=== PATIENT | male | born 1950 | race Two or more races ===

== ENCOUNTER 2017-03-24 09:29 | Emergency (ER) | payer MEDICARE, OTHER ==
[~2017-03-24] VITALS: Ht 180.3 cm; Wt 55.3 kg
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
--- NOTE | 2017-03-24 09:35 | NUR ---
Patient denies headache, neck or back. patient able to move all extremities. neuro intact.
[2017-03-24] MEDS ORDERED: IBUPROFEN 400 MG TABLET PO ONE (10:00)
[2017-03-24] MEDS ORDERED: IBUPROFEN 400 MG TABLET ONE (10:27)
--- NOTE | 2017-03-24 10:30 | NUR ---
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
--- NOTE | 2017-03-24 10:50 | NUR ---
Patient discharged to home in stable condition. Written and verbal after care instructions given. Patient verbalizes understanding of instruction.
[2017-03-24 10:52] VITALS: BP 138/85
== END 2017-03-24 10:52 | disposition home or self-care (01) ==
LOC: ER 09:30
DX: S40.012A Contusion of left shoulder, initial encounter (principal); V43.62XA Car passenger injured in collision with other type car in traffic accident, initial encounter; Y93.89 Activity, other specified; Y92.488 Other paved roadways as the place of occurrence of the external cause; Y99.8 Other external cause status; Z85.118 Personal history of other malignant neoplasm of bronchus and lung
CPT/HCPCS: 73030-TC; A4606; Z7610